=== PATIENT | male | born 1970 | race African-American/Black ===

== ENCOUNTER 2017-10-16 23:28 | Emergency (ER) | payer OTHER ==
[2017-10-16] MEDS ORDERED: Ketorolac 60 MG/2 ML SDV IM ONE (23:59)
--- NOTE | 2017-10-17 00:07 | EDM.PDOC ---
ED HPI GENERAL MEDICAL PROBLEM - General Chief Complaint: Lower Extremity Injury/Pain Stated Complaint: PAIN LT SIDE BODY/LEG Time Seen by Provider: 10/16/17 23:46 - History of Present Illness INITIAL COMMENTS - FREE TEXT/NARRATIVE: HISTORY AND PHYSICAL: History of present illness: The patient is a 46-year-old male who presents after he was bowling and his leg gave out and he had onset of pain at his anterior left thigh and groin area. Pain is worse with movement and extension of his leg. He has no specific bony pain in the hip pelvis femur knee or distal leg. He has no abdominal pain no back pain and he took no medications prior to coming here. Patient says that with this event he did not fall to the ground pass out or blackout. He has no lumbar back pain and prior to these events he was in his usual state of good health. Review of systems: As per history of present illness and below otherwise all systems reviewed and negative. Past medical history: As per history of present illness and as reviewed below otherwise noncontributory. Surgical history: As per history of present illness and as reviewed below otherwise noncontributory. Social history: No reported history of drug or alcohol abuse. Family history: As per history of present illness and as reviewed below otherwise noncontributory. Physical exam: General: Well-developed well-nourished man who is nontoxic and vital signs have been reviewed by me HEENT: Atraumatic, normocephalic, negative for conjunctival pallor or scleral icterus, mucous membranes moist, throat clear, neck supple, nontender, trachea midline. Lungs: Clear to auscultation, breath sounds equal bilaterally, chest nontender. Heart: S1S2, regular in rhythm no overt murmurs Abdomen: Soft, nondistended, nontender. NABS Negative for costovertebral tenderness. Pelvis: Stable nontender. Genitourinary: Testicles are descended bilaterally and there is no evidence of any hernial defect on standing exam with Valsalva. There is no swelling of the scrotum or testicles. There is no discrete inguinal discomfort. Rectal: Deferred. Extremities: Atraumatic, there is tenderness at palpation of the medial quadriceps on the left as well as its proximal insertion in the inguinal region. When the patient extends at the knee he has discomfort in the quadriceps muscle. The compartment is not swollen and there is not any ecchymosis erythema or size discrepancy left versus right. Is no inguinal tenderness and with engagement of the hip flexor the patient only has minimal discomfort. Is no bony defects throughout the entire leg from hip and pelvis on the left down to the ankle. The legs are negative for cords or calf pain. Neurovascular unremarkable. Neuro: Awake, alert, oriented. Cranial nerves II through XII unremarkable. Cerebellum unremarkable. Motor and sensory unremarkable throughout. Exam nonfocal. Diagnostics: [] Therapeutics: Toradol Impression: Left quadriceps sprain strain/hip flexors sprain strain Definitive disposition and diagnosis as appropriate pending reevaluation and review of above. left leg Pain Score (Numeric/FACES): 4 - Related Data Allergies Allergy/AdvReac Type Severity Reaction Status Date / Time No Known Allergies Allergy Verified 10/16/17 23:44 Home Meds: Home Meds . [No Known Home Meds] 10/16/17 [History] Past Medical History - Past Health History Medical/Surgical History: Denies Medical/Surgical History - Infectious Disease History Infectious Disease History: Reports: Chicken Pox Social & Family History - Family History Family Medical History: Noncontributory - Tobacco Use Smoking Status *Q: Current Every Day Smoker Years of Tobacco use: 30 Packs/Tins Daily: 0.5 - Caffeine Use Caffeine Use: Reports: Energy Drinks - Alcohol Use Days Per Week of Alcohol Use: 7 Number of Drinks Per Day: 5 Total Drinks Per Week: 35 - Recreational Drug Use Recreational Drug Use: No Review of Systems - Review of Systems Review Of Systems: ROS reveals no pertinent complaints other than HPI. ED EXAM, GENERAL - Physical Exam Exam: See Below (See dictation) Course - Vital Signs Last Recorded V/S: Last Vital Signs Temp 36.4 C 10/16/17 23:40 Pulse 93 10/16/17 23:40 Resp 20 10/16/17 23:40 BP 120/82 10/16/17 23:40 Pulse Ox 100 10/16/17 23:40 - Orders/Labs/Meds Meds: Medications Discontinued Medications Generic Name Dose Route Start Last Admin Trade Name Freq PRN Reason Stop Dose Admin Ketorolac Tromethamine 60 mg 10/16/17 23:59 Toradol IM 10/17/17 00:00 ONETIME ONE Departure - Departure Time of Disposition: 00:06 Disposition: Home, Self-Care 01 Condition: Good Clinical Impression: Muscle strain of left thigh Qualifiers: Encounter type: initial encounter Qualified Code(s): S76.912A - Strain of unspecified muscles, fascia and tendons at thigh level, left thigh, initial encounter - Discharge Information Referrals: PCP,None [Primary Care Provider] - Additional Instructions: The following information is given to patients seen in the emergency department who are being discharged to home. This information is to outline your options for follow-up care. We provide all patients seen in our emergency department with a follow-up referral. The need for follow-up, as well as the timing and circumstances, are variable depending upon the specifics of your emergency department visit. If you don't have a primary care physician on staff, we will provide you with a referral. We always advise you to contact your personal physician following an emergency department visit to inform them of the circumstance of the visit and for follow-up with them and/or the need for any referrals to a consulting specialist. The emergency department will also refer you to a specialist when appropriate. This referral assures that you have the opportunity for followup care with a specialist. All of these measure are taken in an effort to provide you with optimal care, which includes your followup. Under all circumstances we always encourage you to contact your private physician who remains a resource for coordinating your care. When calling for followup care, please make the office aware that this follow-up is from your recent emergency room visit. If for any reason you are refused follow-up, please contact the [facility] emergency department at and ask to speak to the emergency department charge nurse. [facility]ty [facility]--Orthopedic clinic Professional Building [address] [place] [id number] [facility] Primary [facility]- Internal Medicine and Family [facility] [address] [place] [id number] Ice and elevate the area and use medications prescribed to be Insty Meds, Flexeril and diclofenac, for pain and muscle relaxation. Please only take the Flexeril when you're at home. Please call and follow-up with one of our clinic providers and return to ER as needed and as discussed.
== END 2017-10-17 00:25 | disposition home or self-care (01) ==
LOC: MW.ED 23:28
DX: S76.912A Strain of unspecified muscles, fascia and tendons at thigh level, left thigh, initial encounter (principal); F17.210 Nicotine dependence, cigarettes, uncomplicated; X58.XXXA Exposure to other specified factors, initial encounter
CPT/HCPCS: 96372; 99283; J1885

== ENCOUNTER 2017-10-20 19:15 | Emergency (ER) | payer OTHER ==
--- NOTE | 2017-10-20 20:19 | EDM.PDOC ---
ED HPI GENERAL MEDICAL PROBLEM - General Chief Complaint: Genitourinary Problem Stated Complaint: ABDOMINAL PAIN Time Seen by Provider: 10/20/17 19:53 Source of Information: Reports: Patient History Limitations: Reports: No Limitations - History of Present Illness INITIAL COMMENTS - FREE TEXT/NARRATIVE: HISTORY AND PHYSICAL: History of present illness: Camilo is a 46-year-old male here for pain in his penis. He states it started 3 days ago and has been worsening today. Pain is worse with urination. He denies any penile discharge, abdominal pain, groin pain, nausea, vomiting, diarrhea, fevers, chills. He denies any injury. He is sexually active. Review of systems: As per history of present illness and below otherwise all systems reviewed and negative. Past medical history: As per history of present illness and as reviewed below otherwise noncontributory. Surgical history: As per history of present illness and as reviewed below otherwise noncontributory. Social history: No reported history of drug or alcohol abuse. Family history: As per history of present illness and as reviewed below otherwise noncontributory. Physical exam: General: patient sitting comfortably in no acute distress HEENT: Atraumatic, normocephalic, pupils reactive, negative for conjunctival pallor or scleral icterus, mucous membranes moist, throat clear, neck supple, nontender, trachea midline. Lungs: Clear to auscultation, breath sounds equal bilaterally, chest nontender. Heart: S1S2, regular, negative for clicks, rubs, or JVD. Abdomen: Soft, nondistended, nontender. Negative for masses or hepatosplenomegaly. Negative for costovertebral tenderness. Genitourinary: No swelling or erythema to scrotum or penis. There is no tenderness to palpation of scrotum, normal cremasteric reflex. There is mild tenderness to palpation of glans penis. No erythema or discharge noted. Extremities: Atraumatic, negative for cords or calf pain. Neurovascular unremarkable. Neuro: Awake, alert, oriented. Cranial nerves II through XII unremarkable. Cerebellum unremarkable. Motor and sensory unremarkable throughout. Exam nonfocal. Notes: Diagnostics: UA, urine gonorrhea/chlamydia Therapeutics: IM Rocephin 1 gram Azithromycin Impression: Dysuria Plan: #1 Follow up with urology, abstain from sexual intercourse until follow up and you have received results of urine gonorrhea/chlamydia #2 Return to ED as needed as discussed Definitive disposition and diagnosis as appropriate pending reevaluation and review of above. penile Pain Score (Numeric/FACES): 7 - Related Data Allergies Allergy/AdvReac Type Severity Reaction Status Date / Time No Known Allergies Allergy Verified 10/20/17 19:32 Home Meds: Home Meds . [No Known Home Meds] 10/16/17 [History] Past Medical History - Past Health History Medical/Surgical History: Denies Medical/Surgical History - Infectious Disease History Infectious Disease History: Reports: Chicken Pox Social & Family History - Family History Family Medical History: Noncontributory - Tobacco Use Smoking Status *Q: Current Every Day Smoker Years of Tobacco use: 20 Packs/Tins Daily: 1 - Caffeine Use Caffeine Use: Reports: Energy Drinks - Recreational Drug Use Recreational Drug Use: No ED ROS GENERAL - Review of Systems Review Of Systems: ROS reveals no pertinent complaints other than HPI. ED EXAM, RENAL/ - Physical Exam Exam: See Below (see dictation) Course - Vital Signs Last Recorded V/S: Last Vital Signs Temp 36.5 C 10/20/17 19:29 Pulse 87 10/20/17 19:29 Resp 20 10/20/17 19:29 BP 137/83 10/20/17 19:29 Pulse Ox 97 10/20/17 19:29 - Orders/Labs/Meds Orders: Active Orders 24 hr Category Date Time Status CHLAMYDIA AND GONORRHEA BY TMA Stat Lab 10/20/17 19:35 Received UA W/MICROSCOPIC [URIN] Stat Lab 10/20/17 19:35 Ordered Labs: Laboratory Tests 10/20/17 Range/Units 19:35 Urine Color YELLOW Urine Appearance CLEAR Urine pH 6.5 (5.0-8.0) Ur Specific [place] 1.025 (1.001-1.035) Urine Protein NEGATIVE (NEGATIVE) mg/dL Urine Glucose (UA) NEGATIVE (NEGATIVE) mg/dL Urine Ketones NEGATIVE (NEGATIVE) mg/dL Urine Occult Blood NEGATIVE (NEGATIVE) Urine Nitrite NEGATIVE (NEGATIVE) Urine Bilirubin NEGATIVE (NEGATIVE) Urine Urobilinogen 2.0 H (<2.0) EU/dL Ur Leukocyte Esterase NEGATIVE (NEGATIVE) Urine RBC NONE SEEN (0-2/HPF) Urine WBC 0-1 (0-5/HPF) Ur Epithelial Cells RARE (NONE-FEW) Urine Bacteria RARE (NEGATIVE) Departure - Departure Time of Disposition: 20:20 Disposition: Home, Self-Care 01 Condition: Good Clinical Impression: Dysuria - Discharge Information Referrals: PCP,None [Primary Care Provider] - Forms: ED Department Discharge Additional Instructions: The following information is given to patients seen in the emergency department who are being discharged to home. This information is to outline your options for follow-up care. We provide all patients seen in our emergency department with a follow-up referral. The need for follow-up, as well as the timing and circumstances, are variable depending upon the specifics of your emergency department visit. If you don't have a primary care physician on staff, we will provide you with a referral. We always advise you to contact your personal physician following an emergency department visit to inform them of the circumstance of the visit and for follow-up with them and/or the need for any referrals to a consulting specialist. The emergency department will also refer you to a specialist when appropriate. This referral assures that you have the opportunity for follow-up care with a specialist. All of these measure are taken in an effort to provide you with optimal care, which includes your follow-up. Under all circumstances we always encourage you to contact your private physician who remains a resource for coordinating your care. When calling for follow-up care, please make the office aware that this follow-up is from your recent emergency room visit. If for any reason you are refused follow-up, please contact the [facility] Emergency Department at and asked to speak to the emergency department charge nurse. [facility] Specialty Care - Urology [address] [place] [id number] [facility] Primary Care [address] [place] [id number] #1 Follow up with urology, abstain from sexual intercourse until follow up and you have received results of urine gonorrhea/chlamydia #2 Return to ED as needed as discussed - My Orders Last 24 Hours: My Active Orders 10/20/17 19:35 CHLAMYDIA AND GONORRHEA BY TMA Stat UA W/MICROSCOPIC [URIN] Stat - Assessment/Plan Last 24 Hours: My Active Orders 10/20/17 19:35 CHLAMYDIA AND GONORRHEA BY TMA Stat UA W/MICROSCOPIC [URIN] Stat
[2017-10-20] MEDS ORDERED: cefTRIAXone 250 MG in Lidocaine 1% 0.9 ML IM ONE (20:22)
[2017-10-20] MEDS ORDERED: Azithromycin 200 MG/5 ML Susp 15 ML Bottle PO ONE (20:22)
[2017-10-20] MEDS ORDERED: Azithromycin 250 MG Tab ONE (20:27)
[2017-10-20] MEDS ORDERED: Azithromycin 250 MG Tab PO ONE (20:34)
== END 2017-10-20 20:48 | disposition home or self-care (01) ==
LOC: MW.ED 19:15
DX: R30.0 Dysuria (principal); F17.210 Nicotine dependence, cigarettes, uncomplicated
CPT/HCPCS: 81001; 87491; 87591; 96372; 99283; A9270; J0696

== ENCOUNTER 2018-08-29 19:22 | Emergency (ER) | payer OTHER ==
--- NOTE | 2018-08-29 19:44 | EDM.PDOC ---
ED HPI GENERAL MEDICAL PROBLEM - General Chief Complaint: Upper Extremity Injury/Pain Stated Complaint: INJURED ELBOW Time Seen by Provider: 08/29/18 19:33 - History of Present Illness INITIAL COMMENTS - FREE TEXT/NARRATIVE: HISTORY AND PHYSICAL: History of present illness: Patient 47-year-old black male presents with concern of right elbow pain this is chronic intermittent problem he was here for another reason in the hospital so he states he thought he would get it checked out while he was here. He denies trauma or other concern Review of systems: As per history of present illness and below otherwise all systems reviewed and negative. Past medical history: As per history of present illness and as reviewed below otherwise noncontributory. Surgical history: As per history of present illness and as reviewed below otherwise noncontributory. Social history: No reported history of drug or alcohol abuse. Family history: As per history of present illness and as reviewed below otherwise noncontributory. Physical exam: HEENT: Atraumatic, normocephalic, pupils reactive, negative for conjunctival pallor or scleral icterus, mucous membranes moist, throat clear, neck supple, nontender, trachea midline. Lungs: Clear to auscultation, breath sounds equal bilaterally, chest nontender. Heart: S1S2, regular, negative for clicks, rubs, or JVD. Abdomen: Soft, nondistended, nontender. Negative for masses or hepatosplenomegaly. Negative for costovertebral tenderness. Pelvis: Stable nontender. Genitourinary: Deferred. Rectal: Deferred. Extremities: Atraumatic, left elbow has no significant swelling crepitation CMS neurovascular exam is unremarkable with some mild tenderness over the lateral epicondyles. Neuro: Awake, alert, oriented. Cranial nerves II through XII unremarkable. Cerebellum unremarkable. Motor and sensory unremarkable throughout. Exam nonfocal. Diagnostics: X-ray left elbow Therapeutics: Sling Impression: #1 left elbow pain rule out epicondylitis Definitive disposition and diagnosis as appropriate pending reevaluation and review of above. left elbow Pain Score (Numeric/FACES): 5 - Related Data Allergies Allergy/AdvReac Type Severity Reaction Status Date / Time No Known Allergies Allergy Verified 08/29/18 19:35 Home Meds: Home Meds . [No Known Home Meds] 10/16/17 [History] Past Medical History - Past Health History Medical/Surgical History: Denies Medical/Surgical History HEENT History: Reports: None Cardiovascular History: Reports: None Respiratory History: Reports: None Gastrointestinal History: Reports: None Genitourinary History: Reports: None Musculoskeletal History: Reports: None Neurological History: Reports: None Psychiatric History: Reports: None Endocrine/Metabolic History: Reports: None Hematologic History: Reports: None Oncologic (Cancer) History: Reports: None Dermatologic History: Reports: None - Infectious Disease History Infectious Disease History: Reports: Chicken Pox - Past Surgical History Male Surgical History: Reports: None Social & Family History - Family History Family Medical History: Noncontributory - Tobacco Use Smoking Status *Q: Current Every Day Smoker Years of Tobacco use: 20 Packs/Tins Daily: 1 - Caffeine Use Caffeine Use: Reports: Energy Drinks - Recreational Drug Use Recreational Drug Use: No Review of Systems - Review of Systems Review Of Systems: ROS reveals no pertinent complaints other than HPI. ED EXAM, GENERAL - Physical Exam Exam: See Below (The dictation) Course - Vital Signs Last Recorded V/S: Last Vital Signs Temp 35.7 C 08/29/18 19:35 Pulse 98 08/29/18 19:35 Resp 18 08/29/18 19:35 BP 134/92 H 08/29/18 19:35 Pulse Ox 95 08/29/18 19:35 - Orders/Labs/Meds Orders: Active Orders 24 hr Category Date Time Status Elbow Min 3V Lt [CR] Stat Exams 08/29/18 19:38 Ordered Departure - Departure Time of Disposition: 19:43 Disposition: Home, Self-Care 01 Condition: Good Clinical Impression: Elbow pain - Discharge Information Referrals: PCP,None [Primary Care Provider] - Additional Instructions: The following information is given to patients seen in the emergency department who are being discharged to home. This information is to outline your options for follow-up care. We provide all patients seen in our emergency department with a follow-up referral. The need for follow-up, as well as the timing and circumstances, are variable depending upon the specifics of your emergency department visit. If you don't have a primary care physician on staff, we will provide you with a referral. We always advise you to contact your personal physician following an emergency department visit to inform them of the circumstance of the visit and for follow-up with them and/or the need for any referrals to a consulting specialist. The emergency department will also refer you to a specialist when appropriate. This referral assures that you have the opportunity for followup care with a specialist. All of these measure are taken in an effort to provide you with optimal care, which includes your followup. Under all circumstances we always encourage you to contact your private physician who remains a resource for coordinating your care. When calling for followup care, please make the office aware that this follow-up is from your recent emergency room visit. If for any reason you are refused follow-up, please contact the [facility] emergency department at and asked to speak to the emergency department charge nurse. [facility] Specialty Care - Orthopedic Clinic Professional Building [address] [place] [address], [address] [place] [address] Sling as directed diclofenac as prescribed on schedule the appointment with orthopedic clinic above return as needed as discussed - My Orders Last 24 Hours: My Active Orders 08/29/18 19:38 Elbow Min 3V Lt [CR] Stat - Assessment/Plan Last 24 Hours: My Active Orders 08/29/18 19:38 Elbow Min 3V Lt [CR] Stat
--- NOTE | 2018-08-29 20:15 | CR ---
Injury. Findings: 3 views of the right elbow demonstrates normal alignment. No fractures. No effusions. IMPRESSION: 1. No acute fracture. Dictated by Evita Pisano MD @ Aug 29 2018 8:12PM Signed by Dr. Evita Pisano @ Aug 29 2018 8:14PM
== END 2018-08-29 20:58 | disposition home or self-care (01) ==
LOC: MW.ED 19:22
DX: M25.521 Pain in right elbow (principal); F17.210 Nicotine dependence, cigarettes, uncomplicated
CPT/HCPCS: 73080-26-RT; 73080-RT; 99283; 99283-25

== ENCOUNTER 2018-10-19 18:49 | Emergency (ER) | payer SELFPAY ==
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
[2018-10-19 20:25] LABS: CHLORIDE,CL 106 mmol/L (98-107); SODIUM,NA 141 mmol/L (136-148)
--- NOTE | 2018-10-19 20:39 | CR ---
INDICATION: Chest pain, shortness of breath TECHNIQUE: Chest radiograph 1 view COMPARISON: None FINDINGS: Mediastinum: The mediastinum is normal in appearance. The heart silhouette is normal in size and morphology. Lung: Both lungs are unremarkable in appearance. No sign of pleural effusion seen. No pneumothorax is identified. measuring 9 mm in the soft tissues of the left neck. IMPRESSION: 1. There is a metallic density measuring 9 mm in the soft tissues of the left neck. Dictated by Arnulfo Esquivel MD @ 10/19/2018 8:37:30 PM Dictated by: Arnulfo Esquivel MD @ 10/19/2018 20:37:34 (Electronically Signed)
== END 2018-10-19 21:05 | disposition home or self-care (01) ==
LOC: MW.ED 18:49
DX: J30.9 Allergic rhinitis, unspecified (principal); J40 Bronchitis, not specified as acute or chronic
CPT/HCPCS: 36415; 71045; 71045-26; 80053; 85025; 99283-25

== ENCOUNTER 2022-12-27 10:15 | Emergency (ER) | payer MEDICAID ==
[2022-12-27] MEDS ORDERED: Lidocaine 1% with EPINEPHrine 1:100,000 20 ML MDV INJECT ONE (10:33)
== END 2022-12-27 11:02 | disposition home or self-care (01) ==
LOC: MW.ED 10:15
DX: Q18.1 Preauricular sinus and cyst (principal)
CPT/HCPCS: 10060; 69000; 87070; 87077; 87186; 87205; 99283; J3490

== ENCOUNTER 2025-01-01 11:04 | Emergency (ER) | payer MEDICAID, OTHER ==
[2025-01-01] MEDS ORDERED: Sodium Chloride 0.9% 2.5 ML Syringe FLUSH PRN (13:22)
[2025-01-01] MEDS ORDERED: Sodium Chloride 0.9% 10 ML Syringe FLUSH PRN (13:22)
[2025-01-01] MEDS: Iopamidol 755 MG/ML 500 ML Multipack Bottle IVPUSH STA (13:48)
[2025-01-01 14:21] LABS: WHITE BLOOD CELL COUNT,WBC 10.77 K/uL (3.9-11.3)
[2025-01-01 14:22] LABS: BASOPHILS ABSOLUTE AUTO 0.05 K/uL (0.00-0.20); BASOPHILS PERCENT AUTO 0.5 % (0.0-1.0); EOSINOPHILS ABSOLUTE AUTO 0.20 K/uL (0.00-0.45); EOSINOPHILS PERCENT AUTO 1.9 % (0.0-6.0); IMMATURE GRAN ABSOLUTE AUTO 0.04 K/uL (0.00-0.05); IMMATURE GRAN PERCENT AUTO 0.4 % (0.0-0.4); LYMPHOCYTES ABSOLUTE AUTO 3.14 K/uL (1.00-4.80); LYMPHOCYTES PERCENT AUTO 29.2 % (24.0-44.0); MEAN PLATELET VOLUME 9.8 fL (9.4-12.4); MONOCYTES ABSOLUTE AUTO 1.09 K/uL (0.00-0.80); MONOCYTES PERCENT AUTO 10.1 % (0.0-8.0); NEUTROPHILS ABSOLUTE AUTO 6.25 K/uL (1.80-7.70); NEUTROPHILS PERCENT AUTO 57.9 % (41.0-71.0); NRBC ABSOLUTE 0.00 K/uL (0.00-0.02); NRBC PERCENT 0.0 /100WBC (0.0-0.2); PLATELET COUNT,PLT 215 K/uL (150-400); RED BLOOD CELL COUNT 4.47 M/uL (4.52-5.90)
[2025-01-01 14:55] LABS: A/G RATIO 1.0 (0.9-1.6); ALANINE AMINOTRANSFERASE,ALT 61.0 IU/L (14-63); ASPARTATE AMNIOTRANSFERASE,AST 31.0 IU/L (15-37); BILIRUBIN TOTAL 0.5 mg/dL (0.2-1.0); BLOOD UREA NITROGEN,BUN 19.0 mg/dL (7.0-18.0); CARBON DIOXIDE,CO2 25.0 mmol/L (21.0-32.0); CHLORIDE,CL 105.0 mmol/L (98-107); CREATININE 1.1 mg/dL (0.8-1.3); EST CRCL DRUG DOSING (CG) 87.77 mL/min; ESTIMATED GFR 80.0 mL/min (>60); GLUCOSE RANDOM 126.0 mg/dL (74-106); POTASSIUM,K 3.8 mmol/L (3.5-5.1); PROTEIN TOTAL,TP 6.4 g/dL (6.4-8.2); SODIUM,NA 140.0 mmol/L (136-148)
[2025-01-01 14:57] LABS: LACTIC ACID 0.9 mmol/L (0.4-2.0)
[2025-01-01] MEDS: fentaNYL 100 MCG/2 ML SDV IVPUSH ONE (16:42)
[2025-01-01] MEDS: Levofloxacin/Dextrose 5%-Water 750 MG in Premix Bag 1 BAG IV ONE (17:39)
== END 2025-01-01 19:26 | disposition left against medical advice (07) ==
LOC: MW.ED 11:04
DX: H66.42 Suppurative otitis media, unspecified, left ear (principal); K11.20 Sialoadenitis, unspecified; Z53.20 Procedure and treatment not carried out because of patient's decision for unspecified reasons
CPT/HCPCS: 10060; 36415; 70491; 80053; 83605; 85025; 87040; 96361; 96365; 96375; 99284; A9270; J1956; J2003; J3010; J7030; Q9967

== ENCOUNTER 2025-01-03 15:01 | Emergency (ER) | payer OTHER | END 2025-01-03 15:42 | disposition home or self-care (01) | LOC: MW.ED 15:01 | DX: Z48.03 Encounter for change or removal of drains (principal); Z75.3 Unavailability and inaccessibility of health-care facilities | CPT/HCPCS: 99282 ==